=== PATIENT | male | born 1995 | race Caucasian/White ===

== ENCOUNTER 2021-05-20 14:37 | Emergency (ER) | payer OTHER ==
[~2021-05-20] VITALS: Ht 175.3 cm; Wt 61.2 kg
[2021-05-20 14:57] VITALS: BP 139/93
--- NOTE | 2021-05-20 14:58 | NUR ---
AT BEDSIDE FOR EVAL.
[2021-05-20] MEDS ORDERED: LIDOCAINE 1%-EPI 1:100,000 20 ML VIAL ONE (15:18)
--- NOTE | 2021-05-20 15:19 | NUR ---
EZEQUIEL MARCUM AT BEDSIDE FOR SUTURING.
[2021-05-20] MEDS ORDERED: LIDOCAINE 1%-EPI 1:100,000 20 ML VIAL TP ONE (15:30)
[2021-05-20] MEDS ORDERED: HYDR-4209 PO (16:05)
--- NOTE | 2021-05-20 16:08 | NUR ---
KIEL MCNEIL AT BEDSIDE FOR WOUND CLEANING AND DRESSING.
--- NOTE | 2021-05-20 16:19 | NUR ---
Patient discharged to home in stable condition. Written and verbal after care instructions given. Patient verbalizes understanding of instruction.
== END 2021-05-20 16:20 | disposition home or self-care (01) ==
LOC: ER 14:37
DX: S61.412A Laceration without foreign body of left hand, initial encounter (principal); Z88.0 Allergy status to penicillin; W26.0XXA Contact with knife, initial encounter; Y93.89 Activity, other specified; Y92.89 Other specified places as the place of occurrence of the external cause; Y99.8 Other external cause status
CPT/HCPCS: 12001; 99283; J3490

== ENCOUNTER 2023-04-27 20:46 | Emergency (ER) | payer OTHER ==
[~2023-04-27] VITALS: Ht 177.8 cm; Wt 68.0 kg
[~2023-04-27 20:46] MED LIST: HYDR-4209 PO
--- NOTE | 2023-04-27 21:55 | NUR ---
C/O groin pain since wednesday, hx of hernia. A/O x 4. on room air. afebrile. palced comfortably on bed.
[2023-04-27] MEDS ORDERED: KETOROLAC TROMETHAMINE INJ 30 MG/ML VIAL IM ONE (23:00)
[2023-04-27] MEDS ORDERED: KETOROLAC TROMETHAMINE INJ 30 MG/ML VIAL ONE (23:20)
--- NOTE | 2023-04-27 23:26 | NUR ---
urine sent to lab
--- NOTE | 2023-04-27 23:50 | NUR ---
ULTRA SOUND AT BEDSIDE
[2023-04-27 23:54] LABS: BILIRUBIN,URINE NEGATIVE (NEGATIVE); COLOR,URINE YELLOW (YELLOW); LEUKOCYTE ESTERASE ,URINE NEGATIVE (NEGATIVE); NITRITE, URINE NEGATIVE (NEGATIVE); PH,URINE 5.5 (5.0-8.0); PROTEIN,URINE NEGATIVE (NEGATIVE); UGLUCOSE NEGATIVE (NEGATIVE); UROBILINOGEN,URINE 0.2 EU/dL (0.2)
[2023-04-28] MEDS ORDERED: KETO10TA2 PO (00:10)
--- NOTE | 2023-04-28 00:51 | NUR ---
Patient discharged to home in stable condition. Ambulatory. Written and verbal after care instructions given. Patient verbalizes understanding of instruction.
[2023-04-28 00:52] VITALS: BP 122/85
== END 2023-04-28 00:53 | disposition home or self-care (01) ==
LOC: ER 20:49
DX: I86.1 Scrotal varices (principal); Z79.899 Other long term (current) drug therapy; Z88.0 Allergy status to penicillin
CPT/HCPCS: 99285; 96372; 76870; 81003; J1885